=== PATIENT | female | born 1970 | race African-American/Black ===

== ENCOUNTER 2017-03-15 19:08 | Emergency (ER) | payer OTHER ==
[~2017-03-15] VITALS: Ht 154.9 cm; Wt 92.4 kg
[2017-03-15 20:16] LABS: HEMATOCRIT 49.2 % (36.0-46.0); MCH 27.6 PG (29.0-34.0); MCHC 32.9 G/DL (30.0-36.0); MCV 83.7 FL (83-99); MEAN PLAT.VOLUME 9.8 uM^3 (9.5-12.4); PLATELET COUNT 418 K/uL (156-360); RBC DIS.WIDTH-CV 14.8 % (11.8-14.6); RBC DIS.WIDTH-SD 45.2 % (39-53); RED BLOOD COUNT 5.88 M/uL (3.80-5.20); WHITE BLOOD COUNT 12.5 K/uL (4.1-10.2)
[2017-03-15 20:32] LABS: CHLORIDE 104 mEq/L (99-109); POTASSIUM 3.6 mEq/L (3.7-5.4); SODIUM 141 mEq/L (136-147)
[2017-03-15 20:34] LABS: GLUCOSE 85 mg/dL (70-99)
[2017-03-15 20:35] LABS: ANION GAP 12 MEQ/L (2-14)
[2017-03-15 20:36] LABS: TOTAL BILIRUBIN 0.5 mg/dL (0.0-1.0)
[2017-03-15 20:37] LABS: ALKALINE PHOSPHATASE 95 IU/L (3-129); QUANTITATIVE HCG < 4.0 MIU/ML
[2017-03-15 20:38] LABS: GFR ESTIMATE (CALCULATED) > 59 mL/min/
[2017-03-15 20:39] LABS: ADD MIUA? YES; BILIRUBIN NEGATIVE; BLOOD SMALL; COLOR YELLOW ((YELLOW)); GLUCOSE (STRIP) NEGATIVE; KETONES NEGATIVE; LEUKOCYTES LARGE; NITRITE NEGATIVE; PROTEIN (STRIP) 100; SPECIFIC GRAVITY 1.024 (1.000-1.030)
[2017-03-15 20:39] LABS: UREA NITROGEN (BUN) 12 mg/dL (9-23)
[2017-03-15 20:41] LABS: LIPASE 32 U/L (1.0-51.0)
[2017-03-15 21:03] LABS: BACTERIA 2+ /HPF; CASTS NONE SEEN /LPF; CRYSTALS NONE SEEN; EPITHELIAL CELLS 2+ /HPF; MUCUS 3+ /LPF; UCUL ADDED? YES; WHITE BLOOD CELLS 30-40 /HPF (0-5)
[2017-03-15] MEDS ORDERED: KEFLEX500 MG PO (21:51)
[2017-03-15] MEDS ORDERED: PYRIDIUM200 MG PO (21:51)
[2017-03-15 22:42] VITALS: BP 157/98
== END 2017-03-15 22:43 | disposition home or self-care (01) ==
LOC: EME 19:08
PROVIDERS: Physician Assistant Medical
DX: R10.31 Right lower quadrant pain (principal); N30.90 Cystitis, unspecified without hematuria; R11.0 Nausea; R10.817 Generalized abdominal tenderness; Z90.710 Acquired absence of both cervix and uterus
CPT/HCPCS: 74176; 76856; 80053; 81003; 83690; 84702; 85027; 87086; 99281; 99285; J1885; J2270; J2405; J7030